=== PATIENT | male | born 1950 | race African-American/Black ===

== ENCOUNTER 2017-01-17 11:20 | Inpatient (IN) | payer OTHER ==
[2017-01-17 13:56] VITALS: BMI 16.7
--- NOTE | 2017-01-17 15:48 | HP ---
COWS - Scale Resting Pulse: 0= ID 80 or Below Sweatin= Chills/Flushing Restless Observation: 1= Difficult to Sit Still Pupil Size: 1= Pupils >than Normal Bone or Joint Aches: 2= Severe Diffuse Aches Runny Nose/ Eye Tearin= Runny Nose/Eyes GI Upset > 30mins: 2= Nausea/Diarrhea Tremor Observation: 1= Tremor [place], Not Seen Yawning Observation: 0= None Anxiety or Irritability: 1=Feels Anxious/Irritable Goose Flesh Skin: 0=Smooth Skin COWS Score: 11 CIWA Score - CIWA Score Nausea/Vomitin Muscle Tremors: 2 Anxiety: 3 Agitation: 3 Paroxysmal Sweats: 3 Orientation: 0-Oriented Tacttile Disturbances: 2-Mild Itch/Numbness/Burn Auditory Disturbances: 0-None Visual Disturbances: 0-None Headache: 1-Very Mild CIWA-Ar Total Score: 16 Admission ROS BHS - HPI Chief Complaint: I need to stop using heroin and alcohol and I need help. Allergies/Adverse Reactions: Allergies Allergy/AdvReac Type Severity Reaction Status Date / Time No Known Allergies Allergy Verified 01/17/17 15:34 History of Present Illness: Pt with h/o chronic alcoholism and heroin dep seeking detox. Exam Limitations: No Limitations - Ebola screening Have you traveled outside of the country in the last 21 days: No Have you had contact with anyone from an Ebola affected area: No Have you been sick,other than usual withdrawal symptoms: No Do you have a fever: No - Review of Systems Constitutional: Loss of Appetite, Malaise, Night Sweats, Changes in sleep, Unintentional Wgt. Loss (35 lbs x 9 months) EENT: reports: Blurred Vision, Nose Congestion, Other (intermittent epistaxis) Respiratory: reports: Shortness of Breath, SOB with Exertion Cardiac: reports: No Symptoms Reported GI: reports: Nausea, Poor Appetite, Abdominal cramping : reports: No Symptoms Reported Musculoskeletal: reports: Muscle Pain Integumentary: reports: No Symptoms Reported Neuro: reports: Headache, Tremors, Weakness Endocrine: reports: No Symptoms Reported Hematology: reports: No Symptoms Reported Psychiatric: reports: No Sypmtoms Reported Other Systems: Reviewed and Negative Patient History - Patient Medical History Hx Anemia: No Hx Asthma: Yes Hx Chronic Obstructive Pulmonary Disease (COPD): Yes Hx Cancer: No Hx Cardiac Disorders: No Hx Congestive Heart Failure: No Hx Hypertension: Yes Hx Hypercholesterolemia: No Hx Pacemaker: No HX Cerebrovascular Accident: No Hx Seizures: No Hx Dementia: No Hx Diabetes: No Hx Gastrointestinal Disorders: No Hx Liver Disease: No Hx Genitourinary Disorders: No Hx Sexually Transmitted Disorders: No Hx Renal Disease (ESRD): No Hx Thyroid Disease: No Hx Human Immunodeficiency Virus (HIV): No Hx Hepatitis C: Yes Hx Depression: Yes Hx Suicide Attempt: No (denies any S/H ideation today.) Hx Bipolar Disorder: No Hx Schizophrenia: No - Patient Surgical History Past Surgical History: No Hx Neurologic Surgery: No Hx Cataract Extraction: No Hx Cardiac Surgery: No Hx Lung Surgery: No Hx Breast Surgery: No Hx Breast Biopsy: No Hx Abdominal Surgery: No Hx Appendectomy: No Hx Cholecystectomy: No Hx Genitourinary Surgery: No Hx Section: No Hx Orthopedic Surgery: No Anesthesia Reaction: No - PPD History PPD to be Administered?: No - Reproductive History Patient is a Female of Child Bearing Age (11 -55 yrs old): No - Smoking Cessation Smoking history: Never smoked Have you smoked in the past 12 months: Yes Aproximately how many cigarettes per day: 5 If you are a former smoker, when did you quit?: 6 mos. ago Cigars Per Day: 0 Hx Chewing Tobacco Use: No Initiated information on smoking cessation: Yes 'Breaking Loose' booklet given: 01/17/17 - Substance & Tx. History Hx Alcohol Use: Yes Hx Substance Use: Yes Substance Use Type: Alcohol, Heroin Hx Substance Use Treatment: Yes - Substances Abused Heroin Route: Inhalation Frequency: Daily Amount used: 10 bags Age of first use: 38 Date of Last Use: 01/16/17 Alcohol Route: Oral Frequency: Daily Amount used: 48 oz beer Age of first use: 23 Date of Last Use: 01/16/17 Family Disease History - Family Disease History Family Disease History: Diabetes: Sister Admission Physical Exam BHS - Vital Signs Vital Signs: Vital Signs - 24 hr 01/17/17 13:54 Temperature 96.2 F L Pulse Rate 78 Respiratory 18 Rate Blood Pressure 115/75 66 y/o cachetic m pt aox3 cooperating with exam m. 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 NML intact, Fully Oriented, Alert, Normal Response Integumentary: Yes: Within Normal Limits Lymphatic: Yes: Within Normal Limits - Diagnostic (1) Opioid dependence with withdrawal Current Visit: Yes Status: Chronic (2) Substance induced mood disorder Current Visit: Yes Status: Chronic (3) Asthma Current Visit: Yes Status: Chronic Qualifiers: Asthma severity: mild intermittent Asthma complication type: uncomplicated Qualified Code(s): J45.20 - Mild intermittent asthma, uncomplicated (4) Hypertension Current Visit: Yes Status: Chronic Qualifiers: Hypertension type: essential hypertension Qualified Code(s): I10 - Essential (primary) hypertension (5) Cachexia Current Visit: Yes Status: Chronic (6) History of COPD Current Visit: Yes Status: Chronic Cleared for Admission S - Detox or Rehab S Level of Care: Medically Managed Detox Regimen/Protocol: Methadone/Librium BHS Breath Alcohol Content Breath Alcohol Content: 0 Urine Drug Screen - Results Drug Screen Negative: No Urine Drug Screen Results: OPI-Opiates, MTD-Methadone, TCA-Tricyclic Antidepress , OXY-Oxycodone
[2017-01-17] MEDS ORDERED: LOPERAMIDE HCL 2 MG CAPSULE PO PRN (16:24)
[2017-01-17] MEDS ORDERED: hydrOXYzine PAMOATE 25 MG CAPSULE (FP) PO PRN (16:24)
[2017-01-17] MEDS ORDERED: NICOTINE POLACRILEX 4 MG GUM BC PRN (16:24)
[2017-01-17] MEDS ORDERED: MAGNESIUM CITRATE 300 ML BOTTLE PO PRN (16:24)
[2017-01-17] MEDS ORDERED: MAG HYDROX/AL HYDROX/SIMETH 30 ML UNIT-DOSE CUP PO PRN (16:24)
[2017-01-17] MEDS ORDERED: MENTHOL/PHENOL 1 EACH UD MM PRN (16:24)
[2017-01-17] MEDS ORDERED: chlordiazePOXIDE HCL 25 MG CAPSULE PO PRN (16:24)
[2017-01-17] MEDS ORDERED: MAGNESIUM HYDROX 2400MG/30ML ORAL SUSPENSION 30 ML CUP PO PRN (16:24)
[2017-01-17] MEDS ORDERED: P-EPHED 60MG/TRIPROLIDI 2.5MG TABLET PO PRN (16:24)
[2017-01-17] MEDS ORDERED: METHADONE HCL 10 MG TABLET (FOR DETOX USE ONLY) PO ONE ×2 (17:00→23:00)
[2017-01-17] MEDS: chlordiazePOXIDE HCL 25 MG CAPSULE PO SCH ×2 (17:55→22:24)
[2017-01-17] MEDS: IBUPROFEN 400 MG TABLET (FP) PO PRN (17:56)
[2017-01-17] MEDS: ALBUTEROL SO4 6.7 GM HFA INHALER IH PRN (18:00)
[2017-01-17 18:48] LABS: URINE APPEARANCE CLEAR; URINE BILIRUBIN NEGATIVE (NEGATIVE); URINE BLOOD NEGATIVE (NEGATIVE); URINE COLOR YELLOW; URINE GLUCOSE (UA) NEGATIVE (NEGATIVE); URINE KETONE NEGATIVE (NEGATIVE); URINE LEUK ESTERASE NEGATIVE (NEGATIVE); URINE NITRITE NEGATIVE (NEGATIVE); URINE PROTEIN NEGATIVE (NEGATIVE); URINE UROBILINOGEN NEGATIVE E.U./dl (0.2-1.0)
[2017-01-17] MEDS: ACETAMINOPHEN 325 MG TABLET (FP) PO PRN (19:56)
[2017-01-17] MEDS ORDERED: BUDESONIDE/FORMETEROL FUMARATE 160/4.5 mcg INHALER IH SCH (22:00)
[2017-01-17] MEDS: diphenhydrAMINE HCL 50 MG CAPSULE PO PRN (22:25)
[2017-01-17] MEDS: THIAMINE HCL 100 MG TABLET (FP) PO SCH (22:25)
[2017-01-17] MEDS: BUDESONIDE/FORMETEROL FUMARATE 80/4.5 mcg INHALER IH SCH (22:25)
[2017-01-17] MEDS: CYCLOBENZAPRINE HCL 10 MG TABLET (FP) PO PRN (22:26)
[2017-01-18] MEDS: chlordiazePOXIDE HCL 25 MG CAPSULE PO SCH ×4 (05:29→22:42)
[2017-01-18] MEDS ORDERED: METHADONE HCL 10 MG TABLET (FOR DETOX USE ONLY) PO SCH (10:00)
[2017-01-18 10:09] LABS: MCH 32.4 pg (25.7-33.7); MCHC 33.6 g/dl (32.0-35.9); MEAN CELL VOLUME 96.3 fl (80-96); MEAN PLT VOLUME 8.5 fl (7.5-11.1); WHITE BLOOD COUNT 5.8 K/mm3 (4.0-10.0)
[2017-01-18] MEDS: PRENATAL VITAMINS W/ FOLIC ACID TABLET (FP) PO SCH (10:21)
[2017-01-18] MEDS: BUDESONIDE/FORMETEROL FUMARATE 80/4.5 mcg INHALER IH SCH ×2 (10:22→22:43)
[2017-01-18] MEDS: NICOTINE 21 MG/24 HOURS TOPICAL PATCH TD SCH (10:22)
--- NOTE | 2017-01-18 10:23 | EKG ---
Test Reason : Blood Pressure : / mmHG Vent. Rate : 072 BPM Atrial Rate : 072 BPM P-R Int : 156 ms QRS Dur : 134 ms QT Int : 410 ms P-R-T Axes : 068 050 072 degrees QTc Int : 448 ms NORMAL SINUS RHYTHM RIGHT BUNDLE BRANCH BLOCK ABNORMAL ECG NO PREVIOUS ECGS AVAILABLE Confirmed by JOEY ABBOTT MD ([id number]) on 01/18/2017 10:23:41 AM Referred By: Confirmed By:JOEY ABBOTT MD
[2017-01-18 10:51] LABS: ANISOCYTOSIS 2+; PLATELET COMMENT2 RARE GIANT PLTS; PLATELET COMMENT3 UNABLE TO ENUMERATE; PLATELET ESTIMATE DECREASED (NORMAL)
[2017-01-18 11:20] LABS: ALBUMIN 4.4 g/dl (3.4-5.0); ANION GAP 8 (8-16); BILIRUBIN,TOTAL 0.4 mg/dL (0.2-1.0); CALCIUM 9.4 mg/dL (8.5-10.1); CO2 32 mmol/L (21-32); CREATININE 1.1 mg/dL (0.7-1.3); GLUCOSE,RANDOM 123 mg/dL (74-106); SGOT/AST 30 U/L (15-37); SGPT/ALT 30 U/L (12-78); TOT PROT 8.3 g/dl (6.4-8.2)
[2017-01-18 11:21] LABS: ALK PHOS 74 U/L (45-117)
[2017-01-18 12:11] LABS: HIV 1 & 2 AB NEGATIVE; HIV 1 AGp24 NEGATIVE
--- NOTE | 2017-01-18 12:16 | PN ---
S CIWA - CIWA Score Nausea/Vomitin Muscle Tremors: 3 Anxiety: 3 Agitation: 3 Paroxysmal Sweats: 1-Minimal Palms Moist Orientation: 0-Oriented Tacttile Disturbances: 1-Very Mild Itch/Numbness Auditory Disturbances: 1-Very Mild Visual Disturbances: 1-Very Mild Sensitivity Headache: 2-Mild CIWA-Ar Total Score: 18 BHS COWS - Scale Resting Pulse: 0= [place] 80 or Below Sweatin= Chills/Flushing Restless Observation: 3= Extraneous Movement Pupil Size: 1= Pupils >than Normal Bone or Joint Aches: 2= Severe Diffuse Aches Runny Nose/ Eye Tearin= Runny Nose/Eyes GI Upset > 30mins: 2= Nausea/Diarrhea Tremor Observation of Outstretched Hands: 2= Slight Tremor Visible Yawning Observation: 1= 1-2x During Session Anxiety or Irritability: 2=Irritable/Anxious Goose Flesh Skin: 0=Smooth Skin COWS Score: 16 S Progress Note (SOAP) Subjective: ALERT,IRRITABLE,ANXIOUS,INTERRUPTED SLEEP,TREMOR,PAIN IN THE BODY AND BACK Objective: 01/18/17 12:13 Vital Signs Temperature 97.5 F L 01/18/17 10:14 Pulse Rate 82 01/18/17 10:14 Respiratory Rate 18 01/18/17 10:14 Blood Pressure 107/60 01/18/17 10:14 O2 Sat by Pulse Oximetry (%) EKG NSR RBBB NO CHEST PAIN,NO SOB,NO DIZZINESS Laboratory Last Values WBC 5.8 K/mm3 (4.0-10.0) 01/18/17 06:00 RBC 3.60 M/mm3 (4.00-5.60) L 01/18/17 06:00 Hgb 11.6 GM/dL (11.7-16.9) L 01/18/17 06:00 Hct 34.7 % (35.4-49) L 01/18/17 06:00 MCV 96.3 fl (80-96) H 01/18/17 06:00 MCHC 33.6 g/dl (32.0-35.9) 01/18/17 06:00 RDW 21.0 % (11.9-15.9) H 01/18/17 06:00 Plt Count TNP 01/18/17 06:00 MPV 8.5 fl (7.5-11.1) 01/18/17 06:00 Platelet Estimate Decreased (NORMAL) 01/18/17 06:00 Platelet Comment Slt plt clumping 01/18/17 06:00 Platelet Comment Rare giant plts 01/18/17 06:00 Basophilic Stippling 1+ 01/18/17 06:00 Anisocytosis 2+ 01/18/17 06:00 Macrocytosis 1+ 01/18/17 06:00 Sodium 138 mmol/L (136-145) 01/18/17 06:00 Potassium 4.3 mmol/L (3.5-5.1) 01/18/17 06:00 Chloride 98 mmol/L (98-107) 01/18/17 06:00 Carbon Dioxide 32 mmol/L (21-32) 01/18/17 06:00 Anion Gap 8 (8-16) 01/18/17 06:00 BUN 13 mg/dL (7-18) D 01/18/17 06:00 Creatinine 1.1 mg/dL (0.7-1.3) D 01/18/17 06:00 Creat Clearance w eGFR > 60 (>60) 01/18/17 06:00 Random Glucose 123 mg/dL (74-106) H D 01/18/17 06:00 Calcium 9.4 mg/dL (8.5-10.1) 01/18/17 06:00 Total Bilirubin 0.4 mg/dL (0.2-1.0) 01/18/17 06:00 AST 30 U/L (15-37) D 01/18/17 06:00 ALT 30 U/L (12-78) D 01/18/17 06:00 Alkaline Phosphatase 74 U/L (45-117) D 01/18/17 06:00 Total Protein 8.3 g/dl (6.4-8.2) H 01/18/17 06:00 Albumin 4.4 g/dl (3.4-5.0) 01/18/17 06:00 Urine Color Yellow 01/17/17 18:00 Urine Appearance Clear 01/17/17 18:00 Urine pH 5.0 (5.0-8.0) 01/17/17 18:00 Ur Specific [place] 1.020 (1.001-1.035) 01/17/17 18:00 Urine Protein Negative (NEGATIVE) 01/17/17 18:00 Urine Glucose (UA) Negative (NEGATIVE) 01/17/17 18:00 Urine Ketones Negative (NEGATIVE) 01/17/17 18:00 Urine Blood Negative (NEGATIVE) 01/17/17 18:00 Urine Nitrite Negative (NEGATIVE) 01/17/17 18:00 Urine Bilirubin Negative (NEGATIVE) 01/17/17 18:00 Urine Urobilinogen Negative E.U./dl (0.2-1.0) 01/17/17 18:00 Ur Leukocyte Esterase Negative (NEGATIVE) 01/17/17 18:00 HIV 1&2 Antibody Screen Negative 01/17/17 06:00 HIV P24 Antigen Negative 01/17/17 06:00 Assessment: 01/18/17 12:15 WITHDRAWAL SYMPTOM Plan: CONTINUE DETOX,ENCOURAGE ORAL FLUID,BGM MONITORING
[2017-01-18] MEDS: IBUPROFEN 400 MG TABLET (FP) PO PRN (15:41)
[2017-01-18] MEDS: ACETAMINOPHEN 325 MG TABLET (FP) PO PRN (20:49)
[2017-01-18] MEDS: guaiFENesin/D-METHORPHAN HB 10 ML UNIT-DOSE CUPS PO PRN (21:28)
[2017-01-18] MEDS: THIAMINE HCL 100 MG TABLET (FP) PO SCH (22:42)
[2017-01-18] MEDS: CYCLOBENZAPRINE HCL 10 MG TABLET (FP) PO PRN (22:44)
[2017-01-19] MEDS: chlordiazePOXIDE HCL 25 MG CAPSULE PO SCH ×2 (05:51→10:33)
[2017-01-19] MEDS: IBUPROFEN 400 MG TABLET (FP) PO PRN ×2 (05:54→16:41)
[2017-01-19] MEDS: CYCLOBENZAPRINE HCL 10 MG TABLET (FP) PO PRN (05:54)
[2017-01-19] MEDS: PRENATAL VITAMINS W/ FOLIC ACID TABLET (FP) PO SCH (10:33)
[2017-01-19] MEDS: NICOTINE 21 MG/24 HOURS TOPICAL PATCH TD SCH (10:33)
[2017-01-19] MEDS: BUDESONIDE/FORMETEROL FUMARATE 80/4.5 mcg INHALER IH SCH ×2 (10:33→22:23)
[2017-01-19] MEDS: METHADONE HCL 5 MG TABLET (FOR DETOX USE ONLY) PO SCH (10:33)
--- NOTE | 2017-01-19 10:39 | PN ---
[facility] CIWA - CIWA Score Nausea/Vomitin Muscle Tremors: 3 Anxiety: 3 Agitation: 2 Paroxysmal Sweats: 1-Minimal Palms Moist Orientation: 0-Oriented Tacttile Disturbances: 1-Very Mild Itch/Numbness Auditory Disturbances: 1-Very Mild Visual Disturbances: 1-Very Mild Sensitivity Headache: 2-Mild CIWA-Ar Total Score: 17 BHS COWS - Scale Resting Pulse: 1= [place] 81-100 Sweatin= Chills/Flushing Restless Observation: 3= Extraneous Movement Pupil Size: 1= Pupils >than Normal Bone or Joint Aches: 2= Severe Diffuse Aches Runny Nose/ Eye Tearin= Runny Nose/Eyes GI Upset > 30mins: 3= Vomiting/Diarrhea Tremor Observation of Outstretched Hands: 2= Slight Tremor Visible Yawning Observation: 1= 1-2x During Session Anxiety or Irritability: 2=Irritable/Anxious Goose Flesh Skin: 0=Smooth Skin COWS Score: 18 [facility] Progress Note (SOAP) Subjective: ALERT,IRRITABLE,ANXIOUS,INTERRUPTED SLEEP,TREMOR,PAIN IN THE BODY AND BACK Objective: 01/19/17 10:38 Vital Signs Temperature 97.5 F L 01/19/17 09:52 Pulse Rate 86 01/19/17 09:52 Respiratory Rate 16 01/19/17 09:52 Blood Pressure 97/56 01/19/17 09:52 O2 Sat by Pulse Oximetry (%) 01/19/17 10:38 Laboratory Last Values WBC 5.8 K/mm3 (4.0-10.0) 01/18/17 06:00 RBC 3.60 M/mm3 (4.00-5.60) L 01/18/17 06:00 Hgb 11.6 GM/dL (11.7-16.9) L 01/18/17 06:00 Hct 34.7 % (35.4-49) L 01/18/17 06:00 MCV 96.3 fl (80-96) H 01/18/17 06:00 MCHC 33.6 g/dl (32.0-35.9) 01/18/17 06:00 RDW 21.0 % (11.9-15.9) H 01/18/17 06:00 Plt Count TNP 01/18/17 06:00 MPV 8.5 fl (7.5-11.1) 01/18/17 06:00 Platelet Estimate Decreased (NORMAL) 01/18/17 06:00 Platelet Comment Slt plt clumping 01/18/17 06:00 Platelet Comment Rare giant plts 01/18/17 06:00 Basophilic Stippling 1+ 01/18/17 06:00 Anisocytosis 2+ 01/18/17 06:00 Macrocytosis 1+ 01/18/17 06:00 Sodium 138 mmol/L (136-145) 01/18/17 06:00 Potassium 4.3 mmol/L (3.5-5.1) 01/18/17 06:00 Chloride 98 mmol/L (98-107) 01/18/17 06:00 Carbon Dioxide 32 mmol/L (21-32) 01/18/17 06:00 Anion Gap 8 (8-16) 01/18/17 06:00 BUN 13 mg/dL (7-18) D 01/18/17 06:00 Creatinine 1.1 mg/dL (0.7-1.3) D 01/18/17 06:00 Creat Clearance w eGFR > 60 (>60) 01/18/17 06:00 POC Glucometer 99 UNITS (()) 01/19/17 06:00 Random Glucose 123 mg/dL (74-106) H D 01/18/17 06:00 Calcium 9.4 mg/dL (8.5-10.1) 01/18/17 06:00 Total Bilirubin 0.4 mg/dL (0.2-1.0) 01/18/17 06:00 AST 30 U/L (15-37) D 01/18/17 06:00 ALT 30 U/L (12-78) D 01/18/17 06:00 Alkaline Phosphatase 74 U/L (45-117) D 01/18/17 06:00 Total Protein 8.3 g/dl (6.4-8.2) H 01/18/17 06:00 Albumin 4.4 g/dl (3.4-5.0) 01/18/17 06:00 Urine Color Yellow 01/17/17 18:00 Urine Appearance Clear 01/17/17 18:00 Urine pH 5.0 (5.0-8.0) 01/17/17 18:00 Ur Specific [place] 1.020 (1.001-1.035) 01/17/17 18:00 Urine Protein Negative (NEGATIVE) 01/17/17 18:00 Urine Glucose (UA) Negative (NEGATIVE) 01/17/17 18:00 Urine Ketones Negative (NEGATIVE) 01/17/17 18:00 Urine Blood Negative (NEGATIVE) 01/17/17 18:00 Urine Nitrite Negative (NEGATIVE) 01/17/17 18:00 Urine Bilirubin Negative (NEGATIVE) 01/17/17 18:00 Urine Urobilinogen Negative E.U./dl (0.2-1.0) 01/17/17 18:00 Ur Leukocyte Esterase Negative (NEGATIVE) 01/17/17 18:00 RPR Titer Nonreactive (NONREACTIVE) 01/18/17 06:00 HIV 1&2 Antibody Screen Negative 01/17/17 06:00 HIV P24 Antigen Negative 01/17/17 06:00 Assessment: 01/19/17 10:38 WITHDRAWAL SYMPTOM Plan: CONTINUE DETOX
[2017-01-19] MEDS: chlordiazePOXIDE 5 MG CAPSULE PO SCH ×2 (16:41→22:23)
[2017-01-19] MEDS: diphenhydrAMINE HCL 50 MG CAPSULE PO PRN (22:23)
[2017-01-19] MEDS: THIAMINE HCL 100 MG TABLET (FP) PO SCH (22:23)
[2017-01-20] MEDS: chlordiazePOXIDE 5 MG CAPSULE PO SCH ×2 (05:23→10:23)
[2017-01-20] MEDS: PRENATAL VITAMINS W/ FOLIC ACID TABLET (FP) PO SCH (10:22)
[2017-01-20] MEDS: BUDESONIDE/FORMETEROL FUMARATE 80/4.5 mcg INHALER IH SCH ×2 (10:23→22:25)
[2017-01-20] MEDS: METHADONE HCL 5 MG TABLET (FOR DETOX USE ONLY) PO SCH (10:23)
[2017-01-20] MEDS: NICOTINE 21 MG/24 HOURS TOPICAL PATCH TD SCH (10:24)
[2017-01-20] MEDS: ALBUTEROL SO4 6.7 GM HFA INHALER IH PRN (12:58)
--- NOTE | 2017-01-20 14:37 | PN ---
BHS Progress Note (SOAP) Subjective: Stomach ache, muscle spasm (arms and legs), sweating, interrupted sleep Objective: 01/20/17 14:35 Last Vital Signs Temp Pulse Resp BP Pulse Ox 98.1 F 96 H 20 100/57 01/20/17 13:49 01/20/17 13:49 01/20/17 13:49 01/20/17 13:49 Laboratory Tests 01/17/17 01/17/17 01/18/17 06:00 18:00 06:00 WBC 5.8 RBC 3.60 L Hgb 11.6 L Hct 34.7 L MCV 96.3 H MCHC 33.6 RDW 21.0 H Plt Count TNP MPV 8.5 Platelet Estimate Decreased Platelet Comment Rare giant plts Basophilic Stippling 1+ Anisocytosis 2+ Macrocytosis 1+ Sodium Potassium Chloride Carbon Dioxide Anion Gap BUN Creatinine Creat Clearance w eGFR POC Glucometer Random Glucose Calcium Total Bilirubin AST ALT Alkaline Phosphatase Total Protein Albumin Urine Color Yellow Urine Appearance Clear Urine pH 5.0 Ur Specific [place] 1.020 Urine Protein Negative Urine Glucose (UA) Negative Urine Ketones Negative Urine Blood Negative Urine Nitrite Negative Urine Bilirubin Negative Urine Urobilinogen Negative Ur Leukocyte Esterase Negative RPR Titer HIV 1&2 Antibody Screen Negative HIV P24 Antigen Negative 01/18/17 01/18/17 01/19/17 06:00 06:00 06:00 WBC RBC Hgb Hct MCV MCHC RDW Plt Count MPV Platelet Estimate Platelet Comment Basophilic Stippling Anisocytosis Macrocytosis Sodium 138 Potassium 4.3 Chloride 98 Carbon Dioxide 32 Anion Gap 8 BUN 13 D Creatinine 1.1 D Creat Clearance w eGFR > 60 POC Glucometer 99 Random Glucose 123 H D Calcium 9.4 Total Bilirubin 0.4 AST 30 D ALT 30 D Alkaline Phosphatase 74 D Total Protein 8.3 H Albumin 4.4 Urine Color Urine Appearance Urine pH Ur Specific [place] Urine Protein Urine Glucose (UA) Urine Ketones Urine Blood Urine Nitrite Urine Bilirubin Urine Urobilinogen Ur Leukocyte Esterase RPR Titer Nonreactive HIV 1&2 Antibody Screen HIV P24 Antigen 01/20/17 06:39 WBC RBC Hgb Hct MCV MCHC RDW Plt Count MPV Platelet Estimate Platelet Comment Basophilic Stippling Anisocytosis Macrocytosis Sodium Potassium Chloride Carbon Dioxide Anion Gap BUN Creatinine Creat Clearance w eGFR POC Glucometer 116 Random Glucose Calcium Total Bilirubin AST ALT Alkaline Phosphatase Total Protein Albumin Urine Color Urine Appearance Urine pH Ur Specific [place] Urine Protein Urine Glucose (UA) Urine Ketones Urine Blood Urine Nitrite Urine Bilirubin Urine Urobilinogen Ur Leukocyte Esterase RPR Titer HIV 1&2 Antibody Screen HIV P24 Antigen Labs noted: abnormal CBC (platelets abnormality) Assessment: 01/20/17 14:36 Withdrawal symptoms Abnormal CBC c/o muscle spasm Plan: Continue detox Abnormal CBC: repeat CBC Muscle spasm: flexeril 10mg PO TID
[2017-01-20] MEDS: IBUPROFEN 400 MG TABLET (FP) PO PRN (15:08)
[2017-01-20] MEDS ORDERED: chlordiazePOXIDE 5 MG CAPSULE ONE (17:23)
[2017-01-20] MEDS: chlordiazePOXIDE HCL 10 MG CAPSULE PO SCH ×2 (17:43→22:25)
[2017-01-20] MEDS: THIAMINE HCL 100 MG TABLET (FP) PO SCH (22:25)
[2017-01-20] MEDS: diphenhydrAMINE HCL 50 MG CAPSULE PO PRN (22:25)
[2017-01-20] MEDS: CYCLOBENZAPRINE HCL 10 MG TABLET (FP) PO SCH (22:25)
[2017-01-21] MEDS: CYCLOBENZAPRINE HCL 10 MG TABLET (FP) PO SCH ×3 (05:30→22:32)
[2017-01-21] MEDS: chlordiazePOXIDE HCL 10 MG CAPSULE PO SCH ×2 (05:30→10:55)
[2017-01-21] MEDS: guaiFENesin/D-METHORPHAN HB 10 ML UNIT-DOSE CUPS PO PRN ×2 (09:10→22:34)
[2017-01-21] MEDS: PRENATAL VITAMINS W/ FOLIC ACID TABLET (FP) PO SCH (09:10)
[2017-01-21] MEDS: IBUPROFEN 400 MG TABLET (FP) PO PRN (09:10)
[2017-01-21 09:59] LABS: MCH 32.1 pg (25.7-33.7); MCHC 33.1 g/dl (32.0-35.9); MEAN CELL VOLUME 96.9 fl (80-96); PLATELET COUNT 339 K/MM3 (134-434); RDW 21.5 % (11.9-15.9); WHITE BLOOD COUNT 5.2 K/mm3 (4.0-10.0)
[2017-01-21] MEDS ORDERED: METHADONE HCL 10 MG TABLET (FOR DETOX USE ONLY) PO SCH (10:00)
--- NOTE | 2017-01-21 10:11 | PN ---
BHS Progress Note (SOAP) Subjective: shakes sweats Objective: 01/21/17 11:04 Vital Signs Temperature 96.4 F L 01/21/17 10:00 Pulse Rate 83 01/21/17 10:00 Respiratory Rate 20 01/21/17 10:00 Blood Pressure 102/60 01/21/17 10:00 O2 Sat by Pulse Oximetry (%) awake/alert ambulating no acute distress Assessment: 01/21/17 11:04 withdrawal sx Plan: continue detox increase fluids iron supplement tid d/c in am
[2017-01-21] MEDS: BUDESONIDE/FORMETEROL FUMARATE 80/4.5 mcg INHALER IH SCH ×2 (10:56→22:33)
[2017-01-21] MEDS: NICOTINE 21 MG/24 HOURS TOPICAL PATCH TD SCH (10:56)
[2017-01-21] MEDS: FERROUS SO4 325 MG TABLET (FP) PO SCH ×2 (12:51→17:34)
[2017-01-21] MEDS: diphenhydrAMINE HCL 50 MG CAPSULE PO PRN (22:32)
[2017-01-21] MEDS: THIAMINE HCL 100 MG TABLET (FP) PO SCH (22:32)
[2017-01-22] MEDS: CYCLOBENZAPRINE HCL 10 MG TABLET (FP) PO SCH (05:25)
[2017-01-22] MEDS: guaiFENesin/D-METHORPHAN HB 10 ML UNIT-DOSE CUPS PO PRN (05:28)
[2017-01-22] MEDS ORDERED: METHADONE HCL 5 MG TABLET (FOR DETOX USE ONLY) PO SCH (06:00)
[2017-01-22] MEDS: FERROUS SO4 325 MG TABLET (FP) PO SCH (07:02)
--- NOTE | 2017-01-22 08:08 | PN ---
S Progress Note (SOAP) Subjective: ALERT,NO COMPLAINT Objective: 01/22/17 08:06 Vital Signs Temperature 98.1 F 01/22/17 05:50 Pulse Rate 63 01/22/17 05:50 Respiratory Rate 16 01/22/17 05:50 Blood Pressure 100/61 01/22/17 05:50 O2 Sat by Pulse Oximetry (%) Assessment: 01/22/17 08:06 DETOX COMPLETED,NO WITHDRAWAL SYMPTOM Plan: DISCHARGE TODAY,FOLLOW UP WITH AFTER CARE PROGRAM ARRANGEMENT
--- NOTE | 2017-01-22 08:10 | DS ---
[facility] Detox Discharge Summary Admission Date: 01/17/17 Discharge Date: 01/22/17 - History Present History: Alcohol Dependence, Opioid Dependence Additional Comments: FOLLOW UP WITH AFTER CARE PROGRAM ARRANGEMENT AND PMD FOR MEDICAL PROBLEM Pertinent Past History: COPD ANEMIA HYPERTENSION - Physical Exam Results Vital Signs: Vital Signs Temperature 98.1 F 01/22/17 05:50 Pulse Rate 63 01/22/17 05:50 Respiratory Rate 16 01/22/17 05:50 Blood Pressure 100/61 01/22/17 05:50 O2 Sat by Pulse Oximetry (%) Pertinent Admission Physical Exam Findings: WITHDRAWAL SYMPTOM - Treatment Hospital Course: Detox Protocol Followed, Detoxed Safely, Responded well, Discharged Condition Good Patient has Accepted a Rehab Referral to: DECLINED - Medication Discharge Medications: Ambulatory Orders Albuterol Sulfate Inhaler - [Ventolin Hfa Inhaler -] 2 inh PO Q4H PRN 10/01/16 Salmeterol/Fluticasone [Advair 100Mcg/50Mcg -] 1 inh PO BID 10/01/16 Mirtazapine 7.5 mg PO HS #20 tablet 10/03/16 - AMA Did Patient Leave Against Medical Advice: No
[2017-01-22 09:53] VITALS: BP 94/70; PULSE 90; TEMP 97.7
[2017-01-22] MEDS: BUDESONIDE/FORMETEROL FUMARATE 80/4.5 mcg INHALER IH SCH (10:55)
[2017-01-22] MEDS: NICOTINE 21 MG/24 HOURS TOPICAL PATCH TD SCH (10:55)
[2017-01-22] MEDS: PRENATAL VITAMINS W/ FOLIC ACID TABLET (FP) PO SCH (10:55)
== END 2017-01-22 11:30 | disposition home or self-care (01) | DRG 897 ==
LOC: YASAS 11:20 → Y6N 16:30
PROVIDERS: ADMIT Internal Medicine Addiction Medicine; ATTEND Internal Medicine Addiction Medicine
PROC: HZ2ZZZZ Detoxification Services for Substance Abuse Treatment (ICD-10-PCS; principal; 2017-01-22)
DX: F11.23 Opioid dependence with withdrawal (principal); R64 Cachexia; F19.24 Other psychoactive substance dependence with psychoactive substance-induced mood disorder; I10 Essential (primary) hypertension; J45.20 Mild intermittent asthma, uncomplicated; J44.9 Chronic obstructive pulmonary disease, unspecified
CPT/HCPCS: 36415; 80053; 81003; 85025; 85027; 86593; 87389; 93005; 93010

== ENCOUNTER 2019-02-17 15:31 | Inpatient (IN) | payer OTHER ==
[2019-02-17 20:59] VITALS: BMI 17.7
--- NOTE | 2019-02-17 21:42 | HP ---
COWS - Scale Resting Pulse: 0= ME 80 or Below Sweatin= Chills/Flushing Restless Observation: 0= Sits Still Pupil Size: 0= Normal to Room Light Bone or Joint Aches: 1= Mild Discomfort Runny Nose/ Eye Tearin= Runny Nose/Eyes GI Upset > 30mins: 2= Nausea/Diarrhea (x2) Tremor Observation: 1= Tremor [place], Not Seen Yawning Observation: 4= Several Times/Minute Anxiety or Irritability: 1=Feels Anxious/Irritable Goose Flesh Skin: 0=Smooth Skin COWS Score: 12 CIWA Score Nausea/Vomitin-No Nausea/No Vomiting Muscle Tremors: 2 Anxiety: 2 Agitation: 0-Normal Activity Paroxysmal Sweats: 2 Orientation: 0-Oriented Tacttile Disturbances: 1-Very Mild Itch/Numbness Auditory Disturbances: 1-Very Mild Visual Disturbances: 2-Mild Sensitivity Headache: 2-Mild CIWA-Ar Total Score: 12 - Admission Criteria [facility] Guidelines: Admission for Medically Managed Detox: Requires at least one of the followin. CIWA greater than 12 2. Seizures within the past 24 hours 3. Delirium tremens within the past 24 hours 4. Hallucinations within the past 24 hours 5. Acute intervention needed for co occurring medical disorder 6. Acute intervention needed for co occurring psychiatric disorder 7. Severe withdrawal that cannot be handled at a lower level of care (continued vomiting, continued diarrhea, abnormal vital signs) requiring intravenous medication and/or fluids 8. Patient presents the following: CIWA greater than 12 Admission Criteria Met: Admission criteria met Admission [facility] Chief Complaint: heroin and alcohol withdrawal sx Allergies/Adverse Reactions: Allergies Allergy/AdvReac Type Severity Reaction Status Date / Time No Known Allergies Allergy Verified 02/17/19 20:44 History of Present Illness: 68 yo male with heroin (nasal) and alcohol dependence is here seeking detox d/t withdrawal sx. Last detox [facility] 01/17/17 -01/22/17, reports relapse after of son. PMHX: HTN, Asthma, OA Psych: depression Denies SI/HI Denies hx seizures, overdose or blackouts. hx of falls, last episode one week ago. Exam Limitations: No Limitations - Ebola screening Have you traveled outside of the country in the last 21 days: No Have you had contact with anyone from an Ebola affected area: No - Review of Systems Constitutional: Chills, Loss of Appetite, Changes in sleep, Unexplained wgt Loss EENT: reports: Other (light sensitivity) Respiratory: reports: SOB with Exertion Cardiac: reports: No Symptoms Reported GI: reports: Diarrhea (x2 today), Poor Appetite, Poor Fluid Intake : reports: No Symptoms Reported Musculoskeletal: reports: Back Pain, Joint Pain Integumentary: reports: Pruritus Neuro: reports: Headache, Tingling (bottom of feet) Endocrine: reports: Increased Thirst Hematology: reports: No Symptoms Reported Psychiatric: reports: Orientated x3, Depressed Other Systems: Reviewed and Negative Patient History - Patient Medical History Hx Anemia: No Hx Asthma: Yes Hx Chronic Obstructive Pulmonary Disease (COPD): Yes Hx Cancer: No Hx Cardiac Disorders: No Hx Congestive Heart Failure: No Hx Hypertension: Yes Hx Hypercholesterolemia: No Hx Pacemaker: No HX Cerebrovascular Accident: No Hx Seizures: No Hx Dementia: No Hx Diabetes: No Hx Gastrointestinal Disorders: No Hx Liver Disease: No Hx Genitourinary Disorders: No Hx Sexually Transmitted Disorders: No Hx Renal Disease (ESRD): No Hx Thyroid Disease: No Hx Human Immunodeficiency Virus (HIV): No Hx Hepatitis C: Yes Hx Depression: Yes Hx Suicide Attempt: No (denies any S/H ideation today.) Hx Bipolar Disorder: No Hx Schizophrenia: No - Patient Surgical History Past Surgical History: No Hx Neurologic Surgery: No Hx Cataract Extraction: No Hx Cardiac Surgery: No Hx Lung Surgery: No Hx Breast Surgery: No Hx Breast Biopsy: No Hx Abdominal Surgery: No Hx Appendectomy: No Hx Cholecystectomy: No Hx Genitourinary Surgery: No Hx Section: No Hx Orthopedic Surgery: No Anesthesia Reaction: No - PPD History Previous Implant?: No Documented Results: Positive w/o proof PPD to be Administered?: No - Smoking Cessation Smoking history: Never smoked Have you smoked in the past 12 months: Yes If you are a former smoker, when did you quit?: 6 mos. ago Cigars Per Day: 0 Hx Chewing Tobacco Use: No Initiated information on smoking cessation: No - Substance & Tx. History Hx Alcohol Use: Yes Hx Substance Use: Yes Substance Use Type: Alcohol, Heroin Hx Substance Use Treatment: Yes - Substances abused Heroin Substance route: Inhalation Frequency: Daily Amount used: 10 bags Age of first use: 36 Date of last use: 02/17/19 Alcohol Substance route: Oral Frequency: Daily Amount used: Vodka 2-3 pints Age of first use: 26 Date of last use: 02/17/19 Family Disease History - Family Disease History Family Disease History: Diabetes: Sister Admission Physical Exam [facility] - Vital Signs Vital Signs: Vital Signs - 24 hr 02/17/19 20:55 Temperature 97.1 F L Pulse Rate 68 Respiratory 16 Rate Blood Pressure 114/70 - Physical General Appearance: Yes: Disheveled, Cachetic, Sweating, Anxious HEENTM: Yes: EOMI, Hearing grossly Normal, Normal ENT Inspection, Normocephalic , Normal Voice, YESSI, Pharynx Normal, Tm's normal, Other (cheilitis) Respiratory: Yes: Chest Non-Tender, Lungs Clear, Normal Breath Sounds, No Respiratory Distress, No Accessory Muscle Use Neck: Yes: Within Normal Limits Breast: Yes: Breast Exam Deferred Cardiology: Yes: Regular Rhythm, Regular Rate Abdominal: Yes: Normal Bowel Sounds, Non Tender, Flat, Soft Genitourinary: Yes: Within Normal Limits Back: Yes: Normal Inspection Musculoskeletal: Yes: full range of Motion, Gait Steady, Pelvis Stable, Back pain Extremities: Yes: Normal Capillary Refill, Normal Inspection, Normal Range of Motion, Non-Tender 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 NML intact, Fully Oriented, Alert, Motor Strength 5/5, Depressed Affect Integumentary: Yes: Normal Color, Warm, Diaphoresis, Other (lesion upper lip, scar left arm) Lymphatic: Yes: Within Normal Limits - Diagnostic (1) Alcohol dependence with uncomplicated withdrawal Current Visit: Yes Status: Acute (2) Cachexia Current Visit: Yes Status: Chronic (3) History of COPD Current Visit: Yes Status: Chronic (4) Opioid dependence with withdrawal Current Visit: Yes Status: Chronic (5) PPD positive Current Visit: Yes Status: Chronic (6) Essential (primary) hypertension Current Visit: Yes Status: Chronic (7) Arthritis Current Visit: Yes Status: Chronic Cleared for Admission [facility] - Detox or Rehab [facility] Level of Care: Medically Managed Detox Regimen/Protocol: Methadone/Librium Breathalyzer - Breathalyzer Breathalyzer: 0.066 Urine Drug Screen - Test Device Lot number: [id number] Expiration date: 09/26/20 - Control Is test valid?: Yes - Results Drug screen NEGATIVE: No Urine drug screen results: FEN-Fentanyl, MOP-Opiates Inpatient Rehab Admission - Rehab Decision to Admit Inpatient rehab admission?: No
[2019-02-17] MEDS ORDERED: ALBUTEROL SO4 2.5/IPRATROPIUM 0.5 INH SOL 3 ML VIAL.NEB. NEB PRN (21:45)
[2019-02-17] MEDS ORDERED: MENTHOL/PHENOL 1 EACH UD MM PRN (21:47)
[2019-02-17] MEDS ORDERED: MAGNESIUM CITRATE 300 ML BOTTLE PO PRN (21:47)
[2019-02-17] MEDS ORDERED: BISMUTH SUBSALICYLATE 524 MG/30 ML UD PO PRN (21:47)
[2019-02-17] MEDS ORDERED: MAGNESIUM HYDROX 2400MG/30ML ORAL SUSPENSION 30 ML CUP PO PRN (21:47)
[2019-02-17] MEDS ORDERED: ACETAMINOPHEN 325 MG TABLET (FP) PO PRN (21:47)
[2019-02-17] MEDS ORDERED: cloNIDine HCL 0.1 MG TABLET PO PRN (21:47)
[2019-02-17] MEDS ORDERED: MELATONIN 5 MG TABLETS PO PRN (21:47)
[2019-02-17] MEDS ORDERED: P-EPHED 60MG/TRIPROLIDI 2.5MG TABLET PO PRN (21:47)
[2019-02-17] MEDS ORDERED: MAG HYDROX/AL HYDROX/SIMETH 30 ML UNIT-DOSE CUP PO PRN (21:47)
[2019-02-17] MEDS ORDERED: METHADONE HCL 10 MG TABLET (FOR DETOX USE ONLY) PO ONE ×2 (21:49→23:00)
[2019-02-17] MEDS ORDERED: HYDROCORTISONE 1% TOPICAL OINT 30 GM TUBE TP PRN (21:53)
[2019-02-17] MEDS: THIAMINE HCL 100 MG TABLET (FP) PO SCH (23:08)
[2019-02-17] MEDS: BUDESONIDE/FORMETEROL FUMARATE 160/4.5 mcg INHALER IH SCH (23:08)
[2019-02-17] MEDS: chlordiazePOXIDE HCL 25 MG CAPSULE PO SCH (23:08)
[2019-02-17] MEDS: [UNRECOGNIZED DRUG - OTHER] PO SCH (23:23)
[2019-02-17] MEDS: SACUBITRIL PO SCH (23:23)
[2019-02-17] MEDS: VALSARTAN PO SCH (23:23)
[2019-02-18 03:10] LABS: PH,URINE 5.5 (5.0-8.0); URINE APPEARANCE CLEAR; URINE BILIRUBIN NEGATIVE (NEGATIVE); URINE COLOR YELLOW; URINE GLUCOSE (UA) NEGATIVE (NEGATIVE); URINE KETONE NEGATIVE (NEGATIVE); URINE LEUK ESTERASE NEGATIVE (NEGATIVE); URINE NITRITE NEGATIVE (NEGATIVE); URINE PROTEIN NEGATIVE (NEGATIVE); URINE UROBILINOGEN 0.2 mg/dL (0.2-1.0)
[2019-02-18] MEDS: chlordiazePOXIDE HCL 25 MG CAPSULE PO SCH ×4 (05:30→22:00)
[2019-02-18] MEDS ORDERED: METHADONE HCL 10 MG TABLET (FOR DETOX USE ONLY) PO ONE (10:00)
[2019-02-18] MEDS: PRENATAL VITAMINS W/ FOLIC ACID TABLET (FP) PO SCH (10:27)
[2019-02-18] MEDS: BUDESONIDE/FORMETEROL FUMARATE 160/4.5 mcg INHALER IH SCH ×2 (10:27→22:00)
[2019-02-18] MEDS: [UNRECOGNIZED DRUG - OTHER] PO SCH ×2 (10:28→21:59)
[2019-02-18] MEDS: VALSARTAN PO SCH ×2 (10:28→21:59)
[2019-02-18] MEDS: SACUBITRIL PO SCH ×2 (10:28→21:59)
--- NOTE | 2019-02-18 10:31 | EKG ---
Test Reason : Blood Pressure : / mmHG Vent. Rate : 068 BPM Atrial Rate : 068 BPM P-R Int : 154 ms QRS Dur : 136 ms QT Int : 444 ms P-R-T Axes : 062 -46 068 degrees QTc Int : 472 ms NORMAL SINUS RHYTHM LEFT AXIS DEVIATION RIGHT BUNDLE BRANCH BLOCK ABNORMAL ECG WHEN COMPARED WITH ECG OF 17-JAN-2017 16:27, QRS AXIS SHIFTED LEFT Confirmed by OUSMANE HAYES, KAREEN ([id number]) on 02/18/2019 10:31:42 AM Referred By: Confirmed By:KAREEN ROMEO MD
--- NOTE | 2019-02-18 11:44 | PN ---
[facility] CIWA - CIWA Score Nausea/Vomitin-Mild Nausea/No Vomiting Muscle Tremors: 3 Anxiety: 1-Mildly Anxious Agitation: 2 Paroxysmal Sweats: 1-Minimal Palms Moist Orientation: 2-Disoriented Date<2 days Tacttile Disturbances: 0-None Auditory Disturbances: 0-None Visual Disturbances: 0-None Headache: 1-Very Mild CIWA-Ar Total Score: 11 S COWS - Scale Resting Pulse: 0= [place] 80 or Below Sweatin= Chills/Flushing Restless Observation: 0= Sits Still Pupil Size: 0= Normal to Room Light Bone or Joint Aches: 1= Mild Discomfort Runny Nose/ Eye Tearin= Nasal Congestion GI Upset > 30mins: 2= Nausea/Diarrhea Tremor Observation of Outstretched Hands: 2= Slight Tremor Visible Yawning Observation: 2= >3x During Session Anxiety or Irritability: 2=Irritable/Anxious Goose Flesh Skin: 0=Smooth Skin COWS Score: 11 [facility] Progress Note (SOAP) Subjective: tremor sweating otherwise feeling ok today ambulating on hallway Objective: 02/18/19 11:44 Vital Signs Temperature 98.4 F 02/18/19 09:34 Pulse Rate 76 02/18/19 09:34 Respiratory Rate 18 02/18/19 09:34 Blood Pressure 106/69 02/18/19 09:34 O2 Sat by Pulse Oximetry (%) Laboratory Last Values Urine Color Yellow 02/17/19 22:55 Urine Appearance Clear 02/17/19 22:55 Urine pH 5.5 (5.0-8.0) 02/17/19 22:55 Ur Specific [place] 1.012 (1.010-1.035) 02/17/19 22:55 Urine Protein Negative (NEGATIVE) 02/17/19 22:55 Urine Glucose (UA) Negative (NEGATIVE) 02/17/19 22:55 Urine Ketones Negative (NEGATIVE) 02/17/19 22:55 Urine Blood Negative (NEGATIVE) 02/17/19 22:55 Urine Nitrite Negative (NEGATIVE) 02/17/19 22:55 Urine Bilirubin Negative (NEGATIVE) 02/17/19 22:55 Urine Urobilinogen 0.2 mg/dL (0.2-1.0) 02/17/19 22:55 Ur Leukocyte Esterase Negative (NEGATIVE) 02/17/19 22:55 02/18/19 16:04 lab pending Assessment: 02/18/19 16:04 withdrawal sx Plan: continue detox
[2019-02-18 12:00] LABS: HEMOGLOBIN 9.7 GM/dL (11.7-16.9); MCH 31.3 pg (25.7-33.7); MCHC 33.5 g/dl (32.0-35.9); MEAN CELL VOLUME 93.4 fl (80-96); MEAN PLT VOLUME 8.1 fl (7.5-11.1); PLATELET COUNT 214 K/MM3 (134-434); RBC 3.11 M/mm3 (4.00-5.60); RDW 27.7 % (11.9-15.9)
[2019-02-18 12:10] LABS: ALBUMIN 3.4 g/dl (3.4-5.0); ALK PHOS 47 U/L (45-117); ANION GAP 7 MMOL/L (8-16); BILIRUBIN,TOTAL 0.3 mg/dL (0.2-1); BLOOD UREA NITROGEN 8 mg/dL (7-18); CALCIUM 8.5 mg/dL (8.5-10.1); CHLORIDE 101 mmol/L (98-107); CO2 28 mmol/L (21-32); GLUCOSE,RANDOM 89 mg/dL (74-106); POTASSIUM 3.7 mmol/L (3.5-5.1); SGOT/AST 23 U/L (15-37); SGPT/ALT 18 U/L (13-61); SODIUM 136 mmol/L (136-145); TOT PROT 6.8 g/dl (6.4-8.2)
[2019-02-18] MEDS: METHOCARBAMOL 500 MG TABLET PO PRN (13:00)
[2019-02-18] MEDS: IBUPROFEN 400 MG TABLET (FP) PO PRN ×2 (14:42→19:49)
--- NOTE | 2019-02-18 19:05 | CONSULT ---
[facility] Psychiatric Consult - Data Date of interview: 02/18/19 Admission source: [facility] Identifying data: Readmission to [facility] for this 68 y/o AA male self- referred for detoxification (heroin, alcohol). Examined on . 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 Substance Abuse History: Discussed in this session. Details in current [facility] report : Smoking history: Never smoked. Have you smoked in the past 12 months: Yes. If you are a former smoker, when did you quit?: 6 mos. ago. Cigars Per Day: 0. Hx Chewing Tobacco Use: No. Initiated information on smoking cessation : No. - Substance & Tx. History. Hx Alcohol Use: Yes. Hx Substance Use: Yes. Substance Use Type: Alcohol, Heroin. Hx Substance Use Treatment: Yes. - Substances abused. Heroin. Substance route: Inhalation. Frequency: Daily. Amount used: 10 bags. Age of first use: 36. Date of last use: 02/17/19. Alcohol. Substance route: Oral. Frequency: Daily. Amount used: Vodka 2-3 pints. Age of first use: 26. Date of last use: 02/17/19 Medical History: Bronchial asthma, COPD, hypertension, hepatitis C, chronic lumbar pain and a history of treatment for pneumonia. Psychiatric History: No history of psychiatric hospitalizations or suicide attempts. Mr Hou admits to a brief contact with a psychologist (few sessions lasting less than a year) in 2016 to addrss grief issues. Dropped out of psychotherapy a year ago. No psychotropic medications were prescribed. Physical/Sexual Abuse/Trauma History: No history of sexual abuse. Stressor : of 21 year-old son from multiple sclerosis (may 2016). Additional Comment: Urine drug screen results: FEN-Fentanyl, MOP-Opiates. Noted. Mental Status Exam - Mental Status Exam Alert and Oriented to: Time, Place, Person Patient Appearance: Well Groomed (all stature, thin habitus) Mood: Withdrawn, Anxious, Hopeful Affect: Mood Congruent, Constricted Patient Behavior: Fatigued, Appropriate, Cooperative Speech Pattern: Clear, Appropriate Voice Loudness: Normal Thought Process: Goal Oriented Thought Disorder: Not Present Hallucinations: Denies Suicidal Ideation: Denies Homicidal Ideation: Denies Insight/Judgement: Fair Sleep: Fair Appetite: Poor, Weight loss Muscle strength/Tone: Normal Gait/Station: Normal Psychiatric Findings - Problem List ([place] 1, 2,3) (1) Alcohol dependence with uncomplicated withdrawal Current Visit: Yes Status: Acute (2) Opioid dependence with withdrawal Current Visit: Yes Status: Acute (3) Substance induced mood disorder Current Visit: Yes Status: Chronic - Initial Treatment Plan Initial Treatment Plan: Psychoeducation. Support. Sleep hygiene. Detoxification. Relapse prevention (MAT) suggested to the patient. AA/NA meetings. Rehabilitation is recommended. Motivational counseling. Observation.
[2019-02-18] MEDS: THIAMINE HCL 100 MG TABLET (FP) PO SCH (21:59)
[2019-02-19] MEDS: ACETAMINOPHEN 325 MG TABLET (FP) PO PRN ×2 (00:42→20:14)
[2019-02-19] MEDS: chlordiazePOXIDE HCL 25 MG CAPSULE PO PRN ×3 (00:42→20:11)
[2019-02-19] MEDS: METHOCARBAMOL 500 MG TABLET PO PRN (02:58)
[2019-02-19] MEDS: IBUPROFEN 400 MG TABLET (FP) PO PRN ×2 (02:59→18:04)
[2019-02-19] MEDS: chlordiazePOXIDE HCL 25 MG CAPSULE PO SCH ×3 (05:26→18:04)
[2019-02-19] MEDS ORDERED: METHADONE HCL 10 MG TABLET (FOR DETOX USE ONLY) PO ONE (10:00)
[2019-02-19] MEDS: BUDESONIDE/FORMETEROL FUMARATE 160/4.5 mcg INHALER IH SCH ×2 (11:07→22:08)
[2019-02-19] MEDS: PRENATAL VITAMINS W/ FOLIC ACID TABLET (FP) PO SCH (11:07)
[2019-02-19] MEDS: [UNRECOGNIZED DRUG - OTHER] PO SCH ×2 (11:07→22:08)
[2019-02-19] MEDS: SACUBITRIL PO SCH ×2 (11:07→22:08)
[2019-02-19] MEDS: VALSARTAN PO SCH ×2 (11:07→22:08)
--- NOTE | 2019-02-19 12:38 | PN ---
S CIWA - CIWA Score Nausea/Vomitin-Mild Nausea/No Vomiting Muscle Tremors: 2 Anxiety: 2 Agitation: 2 Paroxysmal Sweats: 1-Minimal Palms Moist Orientation: 1-Uncertain about Date Tacttile Disturbances: 0-None Auditory Disturbances: 0-None Visual Disturbances: 0-None Headache: 0-None Present CIWA-Ar Total Score: 9 [facility] COWS - Scale Resting Pulse: 0= [place] 80 or Below Sweatin= Chills/Flushing Restless Observation: 0= Sits Still Pupil Size: 0= Normal to Room Light Bone or Joint Aches: 1= Mild Discomfort Runny Nose/ Eye Tearin= Nasal Congestion GI Upset > 30mins: 1= Stomach Cramp Tremor Observation of Outstretched Hands: 2= Slight Tremor Visible Yawning Observation: 2= >3x During Session Anxiety or Irritability: 1=Feels Anxious/Irritable Goose Flesh Skin: 0=Smooth Skin COWS Score: 9 S Progress Note (SOAP) Subjective: feeling ok today social with peers in day room and hallway tolerate food and fluid better Objective: 02/19/19 12:40 Vital Signs Temperature 96.2 F L 02/19/19 09:56 Pulse Rate 64 02/19/19 09:56 Respiratory Rate 18 02/19/19 09:56 Blood Pressure 114/69 02/19/19 09:56 O2 Sat by Pulse Oximetry (%) Laboratory Last Values WBC 5.0 K/mm3 (4.0-10.0) 02/18/19 07:30 RBC 3.11 M/mm3 (4.00-5.60) L 02/18/19 07:30 Hgb 9.7 GM/dL (11.7-16.9) L 02/18/19 07:30 Hct 29.0 % (35.4-49) L 02/18/19 07:30 MCV 93.4 fl (80-96) 02/18/19 07:30 MCH 31.3 pg (25.7-33.7) 02/18/19 07:30 MCHC 33.5 g/dl (32.0-35.9) 02/18/19 07:30 RDW 27.7 % (11.9-15.9) H 02/18/19 07:30 Plt Count 214 K/MM3 (134-434) D 02/18/19 07:30 MPV 8.1 fl (7.5-11.1) 02/18/19 07:30 Sodium 136 mmol/L (136-145) 02/18/19 07:30 Potassium 3.7 mmol/L (3.5-5.1) 02/18/19 07:30 Chloride 101 mmol/L (98-107) 02/18/19 07:30 Carbon Dioxide 28 mmol/L (21-32) 02/18/19 07:30 Anion Gap 7 MMOL/L (8-16) L 02/18/19 07:30 BUN 8 mg/dL (7-18) 02/18/19 07:30 Creatinine 1.0 mg/dL (0.55-1.3) 02/18/19 07:30 Creat Clearance w eGFR 74.53 (>60) 02/18/19 07:30 Random Glucose 89 mg/dL (74-106) 02/18/19 07:30 Calcium 8.5 mg/dL (8.5-10.1) 02/18/19 07:30 Total Bilirubin 0.3 mg/dL (0.2-1) 02/18/19 07:30 AST 23 U/L (15-37) 02/18/19 07:30 ALT 18 U/L (13-61) 02/18/19 07:30 Alkaline Phosphatase 47 U/L (45-117) 02/18/19 07:30 Total Protein 6.8 g/dl (6.4-8.2) 02/18/19 07:30 Albumin 3.4 g/dl (3.4-5.0) 02/18/19 07:30 Urine Color Yellow 02/17/19 22:55 Urine Appearance Clear 02/17/19 22:55 Urine pH 5.5 (5.0-8.0) 02/17/19 22:55 Ur Specific [place] 1.012 (1.010-1.035) 02/17/19 22:55 Urine Protein Negative (NEGATIVE) 02/17/19 22:55 Urine Glucose (UA) Negative (NEGATIVE) 02/17/19 22:55 Urine Ketones Negative (NEGATIVE) 02/17/19 22:55 Urine Blood Negative (NEGATIVE) 02/17/19 22:55 Urine Nitrite Negative (NEGATIVE) 02/17/19 22:55 Urine Bilirubin Negative (NEGATIVE) 02/17/19 22:55 Urine Urobilinogen 0.2 mg/dL (0.2-1.0) 02/17/19 22:55 Ur Leukocyte Esterase Negative (NEGATIVE) 02/17/19 22:55 RPR Titer Nonreactive (NONREACTIVE) 02/18/19 07:30 lab noted Assessment: 02/19/19 12:45 withdrawal sx Plan: continue detox
[2019-02-19] MEDS: ALBUTEROL SO4 8 GM HFA INHALER IH PRN (18:03)
[2019-02-19] MEDS: chlordiazePOXIDE HCL 10 MG CAPSULE PO SCH (22:08)
[2019-02-19] MEDS: THIAMINE HCL 100 MG TABLET (FP) PO SCH (22:09)
[2019-02-19] MEDS ORDERED: chlordiazePOXIDE HCL 10 MG CAPSULE PO PRN (23:00)
[2019-02-20] MEDS: chlordiazePOXIDE HCL 10 MG CAPSULE PO SCH ×4 (05:58→22:32)
[2019-02-20] MEDS: METHOCARBAMOL 500 MG TABLET PO PRN ×2 (05:59→23:28)
[2019-02-20] MEDS ORDERED: METHADONE HCL 10 MG TABLET (FOR DETOX USE ONLY) PO ONE (10:00)
[2019-02-20] MEDS: BUDESONIDE/FORMETEROL FUMARATE 160/4.5 mcg INHALER IH SCH ×2 (10:39→22:34)
[2019-02-20] MEDS: [UNRECOGNIZED DRUG - OTHER] PO SCH (10:40)
[2019-02-20] MEDS: VALSARTAN PO SCH (10:40)
[2019-02-20] MEDS: SACUBITRIL PO SCH (10:40)
[2019-02-20] MEDS: PRENATAL VITAMINS W/ FOLIC ACID TABLET (FP) PO SCH (10:41)
[2019-02-20] MEDS: guaiFENesin 200 MG/10 ML 10 ML UNIT-DOSE CUPS PO PRN (13:09)
[2019-02-20] MEDS ORDERED: SODIUM CHLORIDE NASAL SPRAY 44 ML BOTTLE NS PRN (14:38)
--- NOTE | 2019-02-20 17:02 | PN ---
S CIWA - CIWA Score Nausea/Vomitin-No Nausea/No Vomiting Muscle Tremors: None Anxiety: 4-Mod. Anxious/Guarded Agitation: 2 Paroxysmal Sweats: No Perspiration Orientation: 0-Oriented Tacttile Disturbances: 2-Mild Itch/Numbness/Burn Auditory Disturbances: 1-Very Mild Visual Disturbances: 2-Mild Sensitivity Headache: 0-None Present CIWA-Ar Total Score: 11 S COWS - Scale Resting Pulse: 0= [place] 80 or Below Sweatin= No chills or Flushing Restless Observation: 1= Difficult to Sit Still Pupil Size: 0= Normal to Room Light Bone or Joint Aches: 2= Severe Diffuse Aches Runny Nose/ Eye Tearin= None GI Upset > 30mins: 0= None Tremor Observation of Outstretched Hands: 0= None Yawning Observation: 1= 1-2x During Session Anxiety or Irritability: 2=Irritable/Anxious Goose Flesh Skin: 0=Smooth Skin COWS Score: 6 [facility] Progress Note (SOAP) Subjective: Interrupted Sleep, Body Aches, Nasal Congestion. Objective: PATIENT A & O X 2 (UNCERTAIN ABOUT CURRENT DAY / DATE). PATIENT OBSERVED AMBULATING ON UNIT UNASSISTED. IN NO ACUTE DISTRESS. 02/20/19 16:58 Vital Signs Temperature 97.6 F 02/20/19 13:15 Pulse Rate 79 02/20/19 13:15 Respiratory Rate 18 02/20/19 13:15 Blood Pressure 126/68 02/20/19 13:15 O2 Sat by Pulse Oximetry (%) Laboratory Tests 02/17/19 02/18/19 02/18/19 22:55 07:30 07:30 WBC 5.0 RBC 3.11 L Hgb 9.7 L Hct 29.0 L MCV 93.4 MCH 31.3 MCHC 33.5 RDW 27.7 H Plt Count 214 D MPV 8.1 Sodium 136 Potassium 3.7 Chloride 101 Carbon Dioxide 28 Anion Gap 7 L BUN 8 Creatinine 1.0 Creat Clearance w eGFR 74.53 Random Glucose 89 Calcium 8.5 Total Bilirubin 0.3 AST 23 ALT 18 Alkaline Phosphatase 47 Total Protein 6.8 Albumin 3.4 Urine Color Yellow Urine Appearance Clear Urine pH 5.5 Ur Specific [place] 1.012 Urine Protein Negative Urine Glucose (UA) Negative Urine Ketones Negative Urine Blood Negative Urine Nitrite Negative Urine Bilirubin Negative Urine Urobilinogen 0.2 Ur Leukocyte Esterase Negative RPR Titer 02/18/19 07:30 WBC RBC Hgb Hct MCV MCH MCHC RDW Plt Count MPV Sodium Potassium Chloride Carbon Dioxide Anion Gap BUN Creatinine Creat Clearance w eGFR Random Glucose Calcium Total Bilirubin AST ALT Alkaline Phosphatase Total Protein Albumin Urine Color Urine Appearance Urine pH Ur Specific [place] Urine Protein Urine Glucose (UA) Urine Ketones Urine Blood Urine Nitrite Urine Bilirubin Urine Urobilinogen Ur Leukocyte Esterase RPR Titer Nonreactive LABS NOTED. Assessment: 02/20/19 16:59 WITHDRAWAL SYMPTOMS. ANEMIA. 02/20/19 16:59 Plan: CONTINUE DETOX. INCREASE DAILY PO FLUID INTAKE. REPEAT CBC TOMORROW AM FOR ANEMIA NOTED ON DETOX ADMISSION LABS. PATIENT IS CURRENTLY RECEIVING DAILY MVI CONTAINING B VITAMINS AND IRON WHILE ADMITTED FOR DETOX. LIDODERM PATCH FOR LOWER BACK PAIN.
[2019-02-20] MEDS: LIDOCAINE 5% TOPICAL PATCH TP SCH (17:16)
[2019-02-20] MEDS: THIAMINE HCL 100 MG TABLET (FP) PO SCH (22:32)
[2019-02-20] MEDS: LIDOCAINE PATCH REMOVAL MC SCH (22:32)
[2019-02-20] MEDS: ALBUTEROL SO4 8 GM HFA INHALER IH PRN (22:34)
[2019-02-20] MEDS: SACUBITRIL/VALSARTAN 24 MG-26 MG TABLET PO SCH (23:27)
[2019-02-21] MEDS: METHOCARBAMOL 500 MG TABLET PO PRN ×2 (05:42→23:04)
[2019-02-21] MEDS ORDERED: METHADONE HCL 5 MG TABLET (FOR DETOX USE ONLY) PO ONE (06:00)
[2019-02-21] MEDS: guaiFENesin 200 MG/10 ML 10 ML UNIT-DOSE CUPS PO PRN (07:14)
[2019-02-21] MEDS: ALBUTEROL SO4 8 GM HFA INHALER IH PRN (07:14)
[2019-02-21] MEDS: PRENATAL VITAMINS W/ FOLIC ACID TABLET (FP) PO SCH (10:07)
[2019-02-21] MEDS: BUDESONIDE/FORMETEROL FUMARATE 160/4.5 mcg INHALER IH SCH ×2 (10:07→22:16)
[2019-02-21] MEDS: LIDOCAINE 5% TOPICAL PATCH TP SCH (10:09)
[2019-02-21 10:28] LABS: BASO % 1.5 % (0-2.0); EOS % 2.4 % (0-4.5); HEMATOCRIT 27.5 % (35.4-49); HEMOGLOBIN 9.3 GM/dL (11.7-16.9); LYMPH % 47.9 % (8-40); MCH 31.7 pg (25.7-33.7); MCHC 33.8 g/dl (32.0-35.9); MEAN CELL VOLUME 93.7 fl (80-96); MEAN PLT VOLUME 8.2 fl (7.5-11.1); MONO % 17.4 % (3.8-10.2); NEUT % 30.8 % (42.8-82.8); PLATELET COUNT 279 K/MM3 (134-434); RBC 2.94 M/mm3 (4.00-5.60); WHITE BLOOD COUNT 6.2 K/mm3 (4.0-10.0)
[2019-02-21] MEDS: SACUBITRIL/VALSARTAN 24 MG-26 MG TABLET PO SCH ×2 (11:00→22:16)
[2019-02-21] MEDS: chlordiazePOXIDE HCL 10 MG CAPSULE PO SCH ×2 (12:00→22:16)
[2019-02-21 13:22] LABS: ANISOCYTOSIS 2+; MACROCYTOSIS 0; PLATELET ESTIMATE NORMAL; TARGET CELLS 1+; TEAR DROP CELLS 1+
--- NOTE | 2019-02-21 16:46 | PN ---
[facility] CIWA - CIWA Score Nausea/Vomitin-No Nausea/No Vomiting Muscle Tremors: 3 Anxiety: 3 Agitation: 1-Slight > Activity Paroxysmal Sweats: No Perspiration Orientation: 0-Oriented Tacttile Disturbances: 1-Very Mild Itch/Numbness Auditory Disturbances: 0-None Visual Disturbances: 2-Mild Sensitivity Headache: 0-None Present CIWA-Ar Total Score: 10 S COWS - Scale Resting Pulse: 1= [place] 81-100 Sweatin= No chills or Flushing Restless Observation: 0= Sits Still Pupil Size: 0= Normal to Room Light Bone or Joint Aches: 0= None Runny Nose/ Eye Tearin= Nasal Congestion GI Upset > 30mins: 0= None Tremor Observation of Outstretched Hands: 2= Slight Tremor Visible Yawning Observation: 1= 1-2x During Session Anxiety or Irritability: 2=Irritable/Anxious Goose Flesh Skin: 0=Smooth Skin COWS Score: 7 S Progress Note (SOAP) Subjective: Tremors, Anxious. Objective: PATIENT A & O X 3, OBSERVED AMBULATING ON UNIT UNASSISTED. IN NO ACUTE DISTRESS. 02/21/19 16:41 Vital Signs Temperature 97.4 F L 02/21/19 14:08 Pulse Rate 66 02/21/19 14:08 Respiratory Rate 18 02/21/19 14:08 Blood Pressure 126/70 02/21/19 14:08 O2 Sat by Pulse Oximetry (%) Laboratory Tests 02/17/19 02/18/19 02/18/19 22:55 07:30 07:30 WBC 5.0 RBC 3.11 L Hgb 9.7 L Hct 29.0 L MCV 93.4 MCH 31.3 MCHC 33.5 RDW 27.7 H Plt Count 214 D MPV 8.1 Absolute Neuts (auto) Neutrophils % Lymphocytes % Monocytes % Eosinophils % Basophils % Nucleated RBC % Hypochromia Platelet Estimate Polychromasia Poikilocytosis Anisocytosis Microcytosis Macrocytosis Spherocytes Target Cells Tear Drop Cells [place] Cells Sodium 136 Potassium 3.7 Chloride 101 Carbon Dioxide 28 Anion Gap 7 L BUN 8 Creatinine 1.0 Creat Clearance w eGFR 74.53 Random Glucose 89 Calcium 8.5 Total Bilirubin 0.3 AST 23 ALT 18 Alkaline Phosphatase 47 Total Protein 6.8 Albumin 3.4 Urine Color Yellow Urine Appearance Clear Urine pH 5.5 Ur Specific [place] 1.012 Urine Protein Negative Urine Glucose (UA) Negative Urine Ketones Negative Urine Blood Negative Urine Nitrite Negative Urine Bilirubin Negative Urine Urobilinogen 0.2 Ur Leukocyte Esterase Negative RPR Titer 02/18/19 02/21/19 07:30 05:30 WBC 6.2 RBC 2.94 L Hgb 9.3 L Hct 27.5 L MCV 93.7 MCH 31.7 MCHC 33.8 RDW 27.0 H Plt Count 279 D MPV 8.2 Absolute Neuts (auto) 1.9 Neutrophils % 30.8 L D Lymphocytes % 47.9 H D Monocytes % 17.4 H D Eosinophils % 2.4 Basophils % 1.5 Nucleated RBC % 1 H Hypochromia 1+ Platelet Estimate Normal Polychromasia 3+ Poikilocytosis 2+ Anisocytosis 2+ Microcytosis 1+ Macrocytosis 0 Spherocytes 1+ Target Cells 1+ Tear Drop Cells 1+ [place] Cells 1+ Sodium Potassium Chloride Carbon Dioxide Anion Gap BUN Creatinine Creat Clearance w eGFR Random Glucose Calcium Total Bilirubin AST ALT Alkaline Phosphatase Total Protein Albumin Urine Color Urine Appearance Urine pH Ur Specific [place] Urine Protein Urine Glucose (UA) Urine Ketones Urine Blood Urine Nitrite Urine Bilirubin Urine Urobilinogen Ur Leukocyte Esterase RPR Titer Nonreactive LABS NOTED. RESULTS OF REPEAT CBC NOTED. ANEMIA STILL NOTED ON REPEAT CBC. 02/21/19 16:42 Assessment: 02/21/19 16:42 WITHDRAWAL SYMPTOMS. ANEMIA. 02/21/19 16:43 Plan: CONTINUE DETOX. PATIENT IS CURRENTLY RECEIVING DAILY MVI CONTAINING B VITAMINS AND IRON WHILE ADMITTED FOR DETOX. PATIENT IS SCHEDULED FOR DISCHARGE FROM DETOX UNIT TOMORROW AM. PATIENT ADVISED TO FOLLOW-UP WITH MACHINE PLUG SHAPER AFTER DISCHARGE FROM DETOX UNIT FOR GENERAL MEDICAL ASSESSMENT AND FOR ANEMIA NOTED ON ADMISSION AND ON REPEAT LABORATORY ASSESSMENT. PATIENT VERBALIZED UNDERSTANDING OF RECOMMENDATION. COPIES OF RESULTS OF ALL LABS DRAWN WHILE ADMITTED FOR DETOX WERE GIVEN TO PATIENT TO TAKE WITH HIM TO HIS MACHINE PLUG SHAPER AFTER DISCHARGE FROM DETOX UNIT.
[2019-02-21] MEDS: THIAMINE HCL 100 MG TABLET (FP) PO SCH (22:15)
[2019-02-21] MEDS: LIDOCAINE PATCH REMOVAL MC SCH (22:16)
[2019-02-21] MEDS: IBUPROFEN 400 MG TABLET (FP) PO PRN (22:16)
--- NOTE | 2019-02-22 09:05 | DS ---
[facility] Detox Discharge Summary Admission Date: 02/17/19 Discharge Date: 02/22/19 - History Present History: Alcohol Dependence, Opioid Dependence Additional Comments: 68 years old male admitted on 02/17/19 for alcohol and opiate withdrawal stabilization completed detox regimen aftercare [facility] Pertinent Past History: bring in medication list and lab report to aftercare appointment - Physical Exam Results Vital Signs: Vital Signs Temperature 97.3 F L 02/22/19 06:32 Pulse Rate 67 02/22/19 06:32 Respiratory Rate 20 02/22/19 06:32 Blood Pressure 116/65 02/22/19 06:32 O2 Sat by Pulse Oximetry (%) Pertinent Admission Physical Exam Findings: alcohol and opiate withdrawal sx Laboratory Last Values WBC 6.2 K/mm3 (4.0-10.0) 02/21/19 05:30 RBC 2.94 M/mm3 (4.00-5.60) L 02/21/19 05:30 Hgb 9.3 GM/dL (11.7-16.9) L 02/21/19 05:30 Hct 27.5 % (35.4-49) L 02/21/19 05:30 MCV 93.7 fl (80-96) 02/21/19 05:30 MCH 31.7 pg (25.7-33.7) 02/21/19 05:30 MCHC 33.8 g/dl (32.0-35.9) 02/21/19 05:30 RDW 27.0 % (11.9-15.9) H 02/21/19 05:30 Plt Count 279 K/MM3 (134-434) D 02/21/19 05:30 MPV 8.2 fl (7.5-11.1) 02/21/19 05:30 Absolute Neuts (auto) 1.9 K/mm3 (1.5-8.0) 02/21/19 05:30 Neutrophils % 30.8 % (42.8-82.8) L D 02/21/19 05:30 Lymphocytes % 47.9 % (8-40) H D 02/21/19 05:30 Monocytes % 17.4 % (3.8-10.2) H D 02/21/19 05:30 Eosinophils % 2.4 % (0-4.5) 02/21/19 05:30 Basophils % 1.5 % (0-2.0) 02/21/19 05:30 Nucleated RBC % 1 % (0-0) H 02/21/19 05:30 Hypochromia 1+ 02/21/19 05:30 Platelet Estimate Normal 02/21/19 05:30 Polychromasia 3+ 02/21/19 05:30 Poikilocytosis 2+ 02/21/19 05:30 Anisocytosis 2+ 02/21/19 05:30 Microcytosis 1+ 02/21/19 05:30 Macrocytosis 0 02/21/19 05:30 Spherocytes 1+ 02/21/19 05:30 Target Cells 1+ 02/21/19 05:30 Tear Drop Cells 1+ 02/21/19 05:30 Raj Cells 1+ 02/21/19 05:30 Sodium 136 mmol/L (136-145) 02/18/19 07:30 Potassium 3.7 mmol/L (3.5-5.1) 02/18/19 07:30 Chloride 101 mmol/L (98-107) 02/18/19 07:30 Carbon Dioxide 28 mmol/L (21-32) 02/18/19 07:30 Anion Gap 7 MMOL/L (8-16) L 02/18/19 07:30 BUN 8 mg/dL (7-18) 02/18/19 07:30 Creatinine 1.0 mg/dL (0.55-1.3) 02/18/19 07:30 Creat Clearance w eGFR 74.53 (>60) 02/18/19 07:30 Random Glucose 89 mg/dL (74-106) 02/18/19 07:30 Calcium 8.5 mg/dL (8.5-10.1) 02/18/19 07:30 Total Bilirubin 0.3 mg/dL (0.2-1) 02/18/19 07:30 AST 23 U/L (15-37) 02/18/19 07:30 ALT 18 U/L (13-61) 02/18/19 07:30 Alkaline Phosphatase 47 U/L (45-117) 02/18/19 07:30 Total Protein 6.8 g/dl (6.4-8.2) 02/18/19 07:30 Albumin 3.4 g/dl (3.4-5.0) 02/18/19 07:30 Urine Color Yellow 02/17/19 22:55 Urine Appearance Clear 02/17/19 22:55 Urine pH 5.5 (5.0-8.0) 02/17/19 22:55 Ur Specific [place] 1.012 (1.010-1.035) 02/17/19 22:55 Urine Protein Negative (NEGATIVE) 02/17/19 22:55 Urine Glucose (UA) Negative (NEGATIVE) 02/17/19 22:55 Urine Ketones Negative (NEGATIVE) 02/17/19 22:55 Urine Blood Negative (NEGATIVE) 02/17/19 22:55 Urine Nitrite Negative (NEGATIVE) 02/17/19 22:55 Urine Bilirubin Negative (NEGATIVE) 02/17/19 22:55 Urine Urobilinogen 0.2 mg/dL (0.2-1.0) 02/17/19 22:55 Ur Leukocyte Esterase Negative (NEGATIVE) 02/17/19 22:55 RPR Titer Nonreactive (NONREACTIVE) 02/18/19 07:30 lab noted - Treatment Hospital Course: Detox Protocol Followed, Detoxed Safely, Responded well, Discharged Condition Good, Rehab Referral Accepted Patient has Accepted a Rehab Referral to: [facility] - Medication Discharge Medications: Ambulatory Orders Albuterol Sulfate Inhaler - [Ventolin HFA Inhaler -] 2 inh PO Q4H PRN 10/01/16 Salmeterol/Fluticasone [Advair 100Mcg/50Mcg -] 1 inh PO BID 10/01/16 Sacubitril/Valsartan [Entresto 24 mg-26 mg Tablet] 1 each PO BID 02/17/19 Trazodone HCl 150 mg PO HS 02/17/19 - Diagnosis (1) Alcohol dependence with uncomplicated withdrawal Status: Acute (2) Opioid dependence with withdrawal Status: Acute (3) Asthma Status: Chronic Qualifiers: Asthma severity: mild Asthma persistence: intermittent Asthma complication type: with status asthmaticus Qualified Code(s): J45.22 - Mild intermittent asthma with status asthmaticus (4) Essential (primary) hypertension Status: Chronic (5) PPD positive Status: Resolved (6) Substance induced mood disorder Status: Suspected - AMA Did Patient Leave Against Medical Advice: No
[2019-02-22 09:28] VITALS: BP 119/76; PULSE 84; TEMP 97.6
[2019-02-22] MEDS: BUDESONIDE/FORMETEROL FUMARATE 160/4.5 mcg INHALER IH SCH (10:29)
[2019-02-22] MEDS: PRENATAL VITAMINS W/ FOLIC ACID TABLET (FP) PO SCH (10:29)
[2019-02-22] MEDS: LIDOCAINE 5% TOPICAL PATCH TP SCH (10:30)
[2019-02-22] MEDS: SACUBITRIL/VALSARTAN 24 MG-26 MG TABLET PO SCH (10:30)
== END 2019-02-22 11:15 | disposition home or self-care (01) | DRG 897 ==
LOC: YASAS 15:31 → Y3N 22:08
PROVIDERS: ADMIT Surgery; ATTEND Surgery
PROC: HZ2ZZZZ Detoxification Services for Substance Abuse Treatment (ICD-10-PCS; principal; 2019-02-17)
DX: F10.230 Alcohol dependence with withdrawal, uncomplicated (principal); J45.22 Mild intermittent asthma with status asthmaticus; R64 Cachexia; F11.23 Opioid dependence with withdrawal; F19.24 Other psychoactive substance dependence with psychoactive substance-induced mood disorder; I10 Essential (primary) hypertension; J44.9 Chronic obstructive pulmonary disease, unspecified; D64.9 Anemia, unspecified; R76.11 Nonspecific reaction to tuberculin skin test without active tuberculosis; M19.90 Unspecified osteoarthritis, unspecified site
CPT/HCPCS: 36415; 71046-TC-FY; 80053; 81003; 85025; 85027; 86593; 93005; 93010